=== PATIENT | male | born 1975 | race Two or more races ===

== ENCOUNTER → 2024-03-05 11:53 | Outpatient (BNVA) | payer OTHER, SELFPAY | PROVIDERS: Visit Provider Physician Assistant | DX: S67.02XA Crushing injury of left thumb, initial encounter (principal); S61.112A Laceration without foreign body of left thumb with damage to nail, initial encounter; W23.0XXA Caught, crushed, jammed, or pinched between moving objects, initial encounter | CPT/HCPCS: 12001; 73140; 99204 ==

== ENCOUNTER → 2024-03-08 13:32 | Outpatient (BNVA) | payer OTHER, SELFPAY | PROVIDERS: Visit Provider Physician Assistant Medical | DX: S61.112A Laceration without foreign body of left thumb with damage to nail, initial encounter (principal); W23.0XXA Caught, crushed, jammed, or pinched between moving objects, initial encounter | CPT/HCPCS: 11740; 99214 ==

== ENCOUNTER → 2024-03-10 15:20 | Outpatient (BNVA) | payer OTHER, SELFPAY | PROVIDERS: Visit Provider Physician Assistant Medical | DX: S67.02XA Crushing injury of left thumb, initial encounter (principal); S61.112A Laceration without foreign body of left thumb with damage to nail, initial encounter; W23.0XXA Caught, crushed, jammed, or pinched between moving objects, initial encounter | CPT/HCPCS: 99213 ==

== ENCOUNTER → 2024-03-17 15:10 | Outpatient (BNVA) | payer OTHER, SELFPAY | PROVIDERS: Visit Provider Physician Assistant Medical | DX: S67.02XA Crushing injury of left thumb, initial encounter (principal); S61.112A Laceration without foreign body of left thumb with damage to nail, initial encounter; W23.0XXA Caught, crushed, jammed, or pinched between moving objects, initial encounter | CPT/HCPCS: 87070; 87077; 87186; 87205; 99213 ==

== ENCOUNTER → 2024-03-19 14:02 | Outpatient (BNVA) | payer OTHER, SELFPAY | PROVIDERS: Visit Provider Physician Assistant Medical | DX: S67.02XA Crushing injury of left thumb, initial encounter (principal); S61.112A Laceration without foreign body of left thumb with damage to nail, initial encounter; S60.112A Contusion of left thumb with damage to nail, initial encounter; W23.0XXA Caught, crushed, jammed, or pinched between moving objects, initial encounter; L03.012 Cellulitis of left finger | CPT/HCPCS: 99213 ==

== ENCOUNTER → 2024-04-02 15:09 | Outpatient (BNVA) | payer OTHER, SELFPAY | PROVIDERS: Visit Provider Physician Assistant | DX: S61.112D Laceration without foreign body of left thumb with damage to nail, subsequent encounter (principal); S67.02XD Crushing injury of left thumb, subsequent encounter; W23.0XXD Caught, crushed, jammed, or pinched between moving objects, subsequent encounter | CPT/HCPCS: 99213 ==

== ENCOUNTER → 2024-04-05 14:36 | Outpatient (BNVA) | payer OTHER, SELFPAY | PROVIDERS: Visit Provider Physician Assistant Medical | DX: S67.02XD Crushing injury of left thumb, subsequent encounter (principal); S61.112D Laceration without foreign body of left thumb with damage to nail, subsequent encounter; W23.0XXD Caught, crushed, jammed, or pinched between moving objects, subsequent encounter; T81.30XA Disruption of wound, unspecified, initial encounter | CPT/HCPCS: 99213 ==

== ENCOUNTER → 2024-04-08 15:33 | Outpatient (BNVA) | payer OTHER, SELFPAY | PROVIDERS: Visit Provider Physician Assistant Medical | DX: S60.3 Other superficial injuries of thumb (principal); W23.0XXD Caught, crushed, jammed, or pinched between moving objects, subsequent encounter | CPT/HCPCS: 99213 ==

== ENCOUNTER → 2024-04-09 14:47 | Outpatient (BNVA) | payer OTHER, SELFPAY | PROVIDERS: Visit Provider Physician Assistant | DX: S61.112D Laceration without foreign body of left thumb with damage to nail, subsequent encounter (principal); W23.0XXD Caught, crushed, jammed, or pinched between moving objects, subsequent encounter | CPT/HCPCS: 99214 ==

== ENCOUNTER → 2024-04-14 15:17 | Outpatient (BNVA) | payer OTHER, SELFPAY | PROVIDERS: Visit Provider Physician Assistant Medical | DX: S67.02XD Crushing injury of left thumb, subsequent encounter (principal); W23.0XXD Caught, crushed, jammed, or pinched between moving objects, subsequent encounter | CPT/HCPCS: 99213 ==